=== PATIENT | male | born 1960 | race African-American/Black ===

== ENCOUNTER → 2016-11-05 | Outpatient (CLI) | payer OTHER ==
[2016-11-05 08:44] LABS: Basophils % (A) 0 %; CH 32.4; CHCM 33.2; Eosinophils % (A) 1 %; HCT 48.5 % (39.0-53.0); HDW 2.29; HGB 15.8 gm/dL (13.0-17.5); Luc # (Auto) 0.14; Luc % (Auto) 3; Lymphocytes # (A) 1.8 k/uL (1.0-4.8); Lymphocytes % (A) 41 %; MCH 31.8 pg (25.0-35.0); MCHC 32.5 g/dL (31.0-37.0); Mean Platelet Volume 6.9; Monocytes # (A) 0.4 k/uL (0-1.0); Monocytes % (A) 8 %; Neutrophils # (A) 2.1 k/uL (1.3-7.7); Neutrophils % (A) 47 %; RBC 4.95 m/uL (4.30-5.90); RDW 13.5 % (11.5-15.5); WBC 4.4 k/uL (3.8-10.6); WBC (Perox) 4.31
[2016-11-05 08:55] LABS: Anion Gap 11 mmol/L; Blood Urea Nitrogen 18 mg/dL (9-20); Calcium 9.9 mg/dL (8.4-10.2); Carbon Dioxide 26 mmol/L (22-30); Chloride 105 mmol/L (98-107); Glucose 94 mg/dL (74-99); Non-African American GFR(MDRD) >60 (>60 ml/min/1.73 sqM); Potassium 4.9 mmol/L (3.5-5.1); Sodium 142 mmol/L (137-145)
[2016-11-05 09:40] LABS: Erythrocyte Sedimentation Rate 7 mm/hr (0-15)
--- NOTE | 2016-11-05 10:28 | CT ---
EXAMINATION TYPE: CT forearm LT w con DATE OF EXAM: 11/05/2016 10:19 AM COMPARISON: NONE HISTORY: Left forearm abscess CT DLP: 398 mGycm Automated exposure control for dose reduction was used. CONTRAST: Performed with IV Contrast, patient injected with 100 ml mL of Omnipaque 300. FINDINGS: There is soft tissue edema along the volar aspect of the wrist. Skin thickening is noted with fluid a nd edema. No definable abscess cavity. No bone destruction. IMPRESSION: THERE IS EDEMA ALONG THE VOLAR ASPECT OF THE DISTAL FOREARM. NO DEFINABLE OR ENHANCING ABSCESS. CELLU LITIS AND POSSIBLE MYOSITIS IN THE DIFFERENTIAL COULD BE CORRELATED WITH MRI.
[2016-11-06 07:57] LABS: HIV-1/HIV-2 Ab Screen NONREAC (NON REAC)
== END | disposition home or self-care (01) ==
LOC: RADCTMAIN 07:58
PROVIDERS: ATTEND Internal Medicine Infectious Disease
DX: R60.0 Localized edema (principal)
CPT/HCPCS: 80048; 85652; 85025; 87389; 36415; 73201; Q9967

== ENCOUNTER → 2017-02-12 | Outpatient (CLI) | payer OTHER ==
[2017-02-12 10:25] LABS: Basophils % (A) 1 %; CH 32.3; CHCM 32.5; Eosinophils # (A) 0.1 k/uL (0-0.7); Eosinophils % (A) 2 %; HDW 2.35; HGB 16.7 gm/dL (13.0-17.5); Luc # (Auto) 0.18; Luc % (Auto) 4; Lymphocytes # (A) 1.6 k/uL (1.0-4.8); Lymphocytes % (A) 33 %; MCH 32.7 pg (25.0-35.0); MCHC 32.7 g/dL (31.0-37.0); MCV 99.9 fL (80.0-100.0); Mean Platelet Volume 7.1; Monocytes # (A) 0.4 k/uL (0-1.0); Monocytes % (A) 7 %; Neutrophils # (A) 2.6 k/uL (1.3-7.7); Neutrophils % (A) 54 %; RBC 5.11 m/uL (4.30-5.90); RDW 13.6 % (11.5-15.5); WBC 4.8 k/uL (3.8-10.6); WBC (Perox) 4.91
[2017-02-12 10:48] LABS: ALT 46 U/L (21-72); AST 38 U/L (17-59); Alkaline Phosphatase 74 U/L (38-126); Anion Gap 10 mmol/L; Blood Urea Nitrogen 24 mg/dL (9-20); Calcium 9.8 mg/dL (8.4-10.2); Carbon Dioxide 27 mmol/L (22-30); Chloride 103 mmol/L (98-107); Glucose 85 mg/dL (74-99); Non-African American GFR(MDRD) 59 (>60 ml/min/1.73 sqM); Potassium 4.9 mmol/L (3.5-5.1); Sodium 140 mmol/L (137-145); Total Bilirubin 0.7 mg/dL (0.2-1.3); Total Protein 7.3 g/dL (6.3-8.2)
[2017-02-14 11:17] LABS: HCV Qualitative Result DETECTED (Not detected)
== END | disposition home or self-care (01) ==
LOC: LABWHC1 09:50
PROVIDERS: ATTEND Internal Medicine Gastroenterology
DX: B18.2 Chronic viral hepatitis C (principal)
CPT/HCPCS: 36415; 80053; 82105; 85025; 87522; 87902

== ENCOUNTER 2017-05-04 13:36 | Emergency (ER) | payer OTHER ==
[2017-05-04] MEDS ORDERED: SODIUM CHLORIDE 0.9% 1,000 ML IV STA ×2 (13:39)
[2017-05-04 13:43] LABS: Glucose,Whole Blood 115 mg/dL (75-99)
--- NOTE | 2017-05-04 13:47 | ED ---
Syncope HPI - General Stated Complaint: Fall Time Seen by Provider: 05/04/17 13:36 Source: EMS, RN notes reviewed Mode of arrival: EMS Limitations: altered mental status - History of Present Illness Initial Comments: This is a 56-year-old male who sustained a syncopal episode prior to admission apparently he was doing cocaine and Xanax with a friend his his friend opened the door and the patient fell earlier yesterday door frame and onto the ground. He was helped up by his friend EMS was called. Patient complains of some neck pain as well as some lower lip pain he also apparently was unconscious for a brief period time per has 1-2 minutes. No nausea no vomiting no focal deficits reported. Patient did apparently just get discharged from [facility]. MD Complaint: loss of consciousness - Related Data Home Medications Medication Instructions Recorded Confirmed ALPRAZolam [Xanax] 0.25 mg PO DAILY PRN 10/04/15 10/04/15 DULoxetine HCL [Cymbalta] 60 mg PO DAILY 10/04/15 10/04/15 Gabapentin [Neurontin] 300 mg PO TID 10/04/15 10/04/15 Metoprolol Tartrate 25 mg PO BID 10/04/15 10/04/15 Naproxen 500 mg PO Q12HR 10/04/15 10/04/15 Pravastatin Sodium [Pravachol] 20 mg PO DAILY 10/04/15 10/04/15 Simvastatin [Zocor] 40 mg PO HS 10/04/15 10/04/15 oxyCODONE-APAP 7.5-325MG [Percocet 1 tab PO Q6HR PRN 10/04/15 10/04/15 7.5-325 mg] traMADol HCl [Ultram] 50 mg PO Q6H PRN 10/04/15 10/04/15 Allergies Allergy/AdvReac Type Severity Reaction Status Date / Time No Known Allergies Allergy Verified 05/04/17 13:43 Review of Systems ROS Statement: Those systems with pertinent positive or pertinent negative responses have been documented in the HPI. ROS Other: All systems not noted in ROS Statement are negative. Past Medical History Past Medical History: COPD, Diabetes Mellitus, Hyperlipidemia, Hypertension Additional Past Medical History / Comment(s): alcoholism-remission, arthritis, Hepatitis C History of Any Multi-Drug Resistant Organisms: None Reported Additional Past Surgical History / Comment(s): neck surgery from trauma Past Psychological History: Depression Smoking Status: Current every day smoker Past Alcohol Use History: None Reported Past Drug Use History: None Reported General Exam - General Exam Comments Initial Comments: This is a well-developed molars lethargic male he does have a cervical collar in place. He does respond to questioning. Patient does demonstrate Reanna Coma Scale 14 Limitations: altered mental status General appearance: alert, lethargic Head exam: Present: normocephalic, other (Abrasion seen over the left lateral eyebrow no active bleeding no formed by seen no step-off or crepitation) Eye exam: Present: normal appearance, PERRL, EOMI. Absent: scleral icterus, conjunctival injection, periorbital swelling ENT exam: Present: other (A superficial 1 cm laceration of the right lower lip no active bleeding. Dentition is intact with no evidence of any avulsion there is a decayed tooth #6) Neck exam: Present: normal inspection, tenderness. Absent: lymphadenopathy Respiratory exam: Present: normal lung sounds bilaterally. Absent: respiratory distress, wheezes, rales, rhonchi, stridor Cardiovascular Exam: Present: regular rate, normal rhythm, normal heart sounds. Absent: systolic murmur, diastolic murmur, rubs, gallop, clicks GI/Abdominal exam: Present: soft, normal bowel sounds. Absent: distended, tenderness, guarding, rebound, rigid Extremities exam: Present: normal inspection, full ROM, normal capillary refill. Absent: tenderness, pedal edema, joint swelling, calf tenderness Back exam: Present: normal inspection Neurological exam: Present: alert, oriented X3, CN II-XII intact Psychiatric exam: Present: normal affect, normal mood Skin exam: Present: warm, dry, intact, normal color. Absent: rash Course Vital Signs 05/04/17 05/04/17 13:39 13:45 Pulse Rate 94 Pulse Rate [ 100 Delivery Agent ] Respiratory 18 Rate Blood Pressure 75/50 O2 Sat by Pulse 90 L Oximetry Medical Decision Making - Medical Decision Making I did reevaluate patient several occasions he still remains lethargic. There is a question whether this is secondary to concussion versus drug intoxication or combination of both.. The patient does require observation. I did discuss the case with Dr. Oconnor at [facility] patient will be transferred for evaluation. - Lab Data Result diagrams: 05/04/17 13:50 05/04/17 13:50 Lab Results 05/04/17 05/04/17 05/04/17 Range/Units 13:41 13:50 13:50 WBC 6.4 (3.8-10.6) k/uL RBC 4.90 (4.30-5.90) m/uL Hgb 15.8 (13.0-17.5) gm/dL Hct 49.1 (39.0-53.0) % MCV 100.3 H (80.0-100.0) fL MCH 32.3 (25.0-35.0) pg MCHC 32.3 (31.0-37.0) g/dL RDW 14.0 (11.5-15.5) % Plt Count 236 (150-450) k/uL Neutrophils % 59 % Lymphocytes % 30 % Monocytes % 8 % Eosinophils % 1 % Basophils % 0 % Neutrophils # 3.8 (1.3-7.7) k/uL Lymphocytes # 1.9 (1.0-4.8) k/uL Monocytes # 0.5 (0-1.0) k/uL Eosinophils # 0.1 (0-0.7) k/uL Basophils # 0.0 (0-0.2) k/uL PT 11.2 (9.0-12.0) sec INR 1.1 (<1.2) APTT 23.3 (22.0-30.0) sec Sodium (137-145) mmol/L Potassium (3.5-5.1) mmol/L Chloride (98-107) mmol/L Carbon Dioxide (22-30) mmol/L Anion Gap mmol/L BUN (9-20) mg/dL Creatinine (0.66-1.25) mg/dL Est GFR (MDRD) Af Amer (>60 ml/min/1.73 sqM) Est GFR (MDRD) Non-Af (>60 ml/min/1.73 sqM) Glucose (74-99) mg/dL POC Glucose (mg/dL) 115 H (75-99) mg/dL POC Glu Pharmacy Technician Program Director ID Sharp, [place] Calcium (8.4-10.2) mg/dL Magnesium (1.6-2.3) mg/dL Total Bilirubin (0.2-1.3) mg/dL AST (17-59) U/L ALT (21-72) U/L Alkaline Phosphatase (38-126) U/L Total Creatine Kinase (55-170) U/L CK-MB (CK-2) (0.0-2.4) ng/mL CK-MB (CK-2) Rel Index Troponin I (0.000-0.034) ng/mL Total Protein (6.3-8.2) g/dL Albumin (3.5-5.0) g/dL Urine Color Urine Appearance (Clear) Urine pH (5.0-8.0) Ur Specific [place] (1.001-1.035) Urine Protein (Negative) Urine Glucose (UA) (Negative) Urine Ketones (Negative) Urine Blood (Negative) Urine Nitrite (Negative) Urine Bilirubin (Negative) Urine Urobilinogen (<2.0) mg/dL Ur Leukocyte Esterase (Negative) Salicylates mg/dL Urine Opiates Screen (NotDetected) Ur Oxycodone Screen (NotDetected) Urine Methadone Screen (NotDetected) Ur Propoxyphene Screen (NotDetected) Acetaminophen ug/mL Ur Barbiturates Screen (NotDetected) U Tricyclic Antidepress (NotDetected) Ur Phencyclidine Scrn (NotDetected) Ur Amphetamines Screen (NotDetected) U Methamphetamines Scrn (NotDetected) U Benzodiazepines Scrn (NotDetected) Urine Cocaine Screen (NotDetected) U Marijuana (THC) Screen (NotDetected) Serum Alcohol mg/dL 05/04/17 05/04/17 05/04/17 Range/Units 13:50 13:50 14:40 WBC (3.8-10.6) k/uL RBC (4.30-5.90) m/uL Hgb (13.0-17.5) gm/dL Hct (39.0-53.0) % MCV (80.0-100.0) fL MCH (25.0-35.0) pg MCHC (31.0-37.0) g/dL RDW (11.5-15.5) % Plt Count (150-450) k/uL Neutrophils % % Lymphocytes % % Monocytes % % Eosinophils % % Basophils % % Neutrophils # (1.3-7.7) k/uL Lymphocytes # (1.0-4.8) k/uL Monocytes # (0-1.0) k/uL Eosinophils # (0-0.7) k/uL Basophils # (0-0.2) k/uL PT (9.0-12.0) sec INR (<1.2) APTT (22.0-30.0) sec Sodium 143 (137-145) mmol/L Potassium 4.0 (3.5-5.1) mmol/L Chloride 106 (98-107) mmol/L Carbon Dioxide 27 (22-30) mmol/L Anion Gap 10 mmol/L BUN 16 (9-20) mg/dL Creatinine 1.47 H (0.66-1.25) mg/dL Est GFR (MDRD) Af Amer 60 (>60 ml/min/1.73 sqM) Est GFR (MDRD) Non-Af 49 (>60 ml/min/1.73 sqM) Glucose 109 H (74-99) mg/dL POC Glucose (mg/dL) (75-99) mg/dL POC Glu Pharmacy Technician Program Director ID Calcium 9.1 (8.4-10.2) mg/dL Magnesium 1.9 (1.6-2.3) mg/dL Total Bilirubin 0.9 (0.2-1.3) mg/dL AST 41 (17-59) U/L ALT 49 (21-72) U/L Alkaline Phosphatase 90 (38-126) U/L Total Creatine Kinase 244 H (55-170) U/L CK-MB (CK-2) 2.3 (0.0-2.4) ng/mL CK-MB (CK-2) Rel Index 0.9 Troponin I <0.012 (0.000-0.034) ng/mL Total Protein 6.9 (6.3-8.2) g/dL Albumin 4.0 (3.5-5.0) g/dL Urine Color Yellow Urine Appearance Clear (Clear) Urine pH 6.0 (5.0-8.0) Ur Specific [place] 1.008 (1.001-1.035) Urine Protein Negative (Negative) Urine Glucose (UA) Negative (Negative) Urine Ketones Negative (Negative) Urine Blood Negative (Negative) Urine Nitrite Negative (Negative) Urine Bilirubin Negative (Negative) Urine Urobilinogen 3.0 (<2.0) mg/dL Ur Leukocyte Esterase Negative (Negative) Salicylates <1.0 mg/dL Urine Opiates Screen (NotDetected) Ur Oxycodone Screen (NotDetected) Urine Methadone Screen (NotDetected) Ur Propoxyphene Screen (NotDetected) Acetaminophen <10.0 ug/mL Ur Barbiturates Screen (NotDetected) U Tricyclic Antidepress (NotDetected) Ur Phencyclidine Scrn (NotDetected) Ur Amphetamines Screen (NotDetected) U Methamphetamines Scrn (NotDetected) U Benzodiazepines Scrn (NotDetected) Urine Cocaine Screen (NotDetected) U Marijuana (THC) Screen (NotDetected) Serum Alcohol <10 mg/dL 05/04/17 Range/Units 14:40 WBC (3.8-10.6) k/uL RBC (4.30-5.90) m/uL Hgb (13.0-17.5) gm/dL Hct (39.0-53.0) % MCV (80.0-100.0) fL MCH (25.0-35.0) pg MCHC (31.0-37.0) g/dL RDW (11.5-15.5) % Plt Count (150-450) k/uL Neutrophils % % Lymphocytes % % Monocytes % % Eosinophils % % Basophils % % Neutrophils # (1.3-7.7) k/uL Lymphocytes # (1.0-4.8) k/uL Monocytes # (0-1.0) k/uL Eosinophils # (0-0.7) k/uL Basophils # (0-0.2) k/uL PT (9.0-12.0) sec INR (<1.2) APTT (22.0-30.0) sec Sodium (137-145) mmol/L Potassium (3.5-5.1) mmol/L Chloride (98-107) mmol/L Carbon Dioxide (22-30) mmol/L Anion Gap mmol/L BUN (9-20) mg/dL Creatinine (0.66-1.25) mg/dL Est GFR (MDRD) Af Amer (>60 ml/min/1.73 sqM) Est GFR (MDRD) Non-Af (>60 ml/min/1.73 sqM) Glucose (74-99) mg/dL POC Glucose (mg/dL) (75-99) mg/dL POC Glu Pharmacy Technician Program Director ID Calcium (8.4-10.2) mg/dL Magnesium (1.6-2.3) mg/dL Total Bilirubin (0.2-1.3) mg/dL AST (17-59) U/L ALT (21-72) U/L Alkaline Phosphatase (38-126) U/L Total Creatine Kinase (55-170) U/L CK-MB (CK-2) (0.0-2.4) ng/mL CK-MB (CK-2) Rel Index Troponin I (0.000-0.034) ng/mL Total Protein (6.3-8.2) g/dL Albumin (3.5-5.0) g/dL Urine Color Urine Appearance (Clear) Urine pH (5.0-8.0) Ur Specific [place] (1.001-1.035) Urine Protein (Negative) Urine Glucose (UA) (Negative) Urine Ketones (Negative) Urine Blood (Negative) Urine Nitrite (Negative) Urine Bilirubin (Negative) Urine Urobilinogen (<2.0) mg/dL Ur Leukocyte Esterase (Negative) Salicylates mg/dL Urine Opiates Screen Not Detected (NotDetected) Ur Oxycodone Screen Not Detected (NotDetected) Urine Methadone Screen Not Detected (NotDetected) Ur Propoxyphene Screen Not Detected (NotDetected) Acetaminophen ug/mL Ur Barbiturates Screen Not Detected (NotDetected) U Tricyclic Antidepress Not Detected (NotDetected) Ur Phencyclidine Scrn Not Detected (NotDetected) Ur Amphetamines Screen Not Detected (NotDetected) U Methamphetamines Scrn Not Detected (NotDetected) U Benzodiazepines Scrn Detected H (NotDetected) Urine Cocaine Screen Detected H (NotDetected) U Marijuana (THC) Screen Not Detected (NotDetected) Serum Alcohol mg/dL - EKG Data -: EKG Interpreted by Nm EKG shows normal: sinus rhythm, axis, intervals, QRS complexes, ST-T waves ( Normal sinus rhythm rate 96 OK 132 QRS duration 80 daily since QTC of 334/421 or T-wave changes.) Rate: normal - Radiology Data Radiology results: report reviewed (Imaging shows no acute findings.), image reviewed Disposition Clinical Impression: Syncope, Concussion, Facial abrasion, Drug abuse, cocaine type Disposition: OTHER INSTITUTION NOT DEFINED Condition: Stable Referrals: None,Stated [Primary Care Provider] - 1-2 days - Out of Hospital Transfer - Req. Specs Out of Hospital Transfer - Requested Specifics: Other Emergency Center
[2017-05-04 14:06] LABS: Basophils % (A) 0 %; CHCM 33.1; Eosinophils # (A) 0.1 k/uL (0-0.7); Eosinophils % (A) 1 %; HCT 49.1 % (39.0-53.0); HDW 2.44; HGB 15.8 gm/dL (13.0-17.5); Luc # (Auto) 0.15; Luc % (Auto) 2; Lymphocytes # (A) 1.9 k/uL (1.0-4.8); Lymphocytes % (A) 30 %; MCH 32.3 pg (25.0-35.0); MCHC 32.3 g/dL (31.0-37.0); MCV 100.3 fL (80.0-100.0); Mean Platelet Volume 7.8; Monocytes # (A) 0.5 k/uL (0-1.0); Monocytes % (A) 8 %; Neutrophils # (A) 3.8 k/uL (1.3-7.7); Neutrophils % (A) 59 %; WBC 6.4 k/uL (3.8-10.6)
[2017-05-04 14:12] LABS: ALT 49 U/L (21-72); AST 41 U/L (17-59); Acetaminophen <10.0 ug/mL; Alcohol <10 mg/dL; Alkaline Phosphatase 90 U/L (38-126); Anion Gap 10 mmol/L; Blood Urea Nitrogen 16 mg/dL (9-20); Calcium 9.1 mg/dL (8.4-10.2); Carbon Dioxide 27 mmol/L (22-30); Chloride 106 mmol/L (98-107); Glucose 109 mg/dL (74-99); Magnesium 1.9 mg/dL (1.6-2.3); Non-African American GFR(MDRD) 49 (>60 ml/min/1.73 sqM); Salicylate <1.0 mg/dL; Sodium 143 mmol/L (137-145); Total Bilirubin 0.9 mg/dL (0.2-1.3); Total Protein 6.9 g/dL (6.3-8.2)
[2017-05-04 14:18] LABS: INR 1.1 (<1.2); Partial Thromboplastin Time 23.3 sec (22.0-30.0); Prothrombin Time 11.2 sec (9.0-12.0)
--- NOTE | 2017-05-04 14:21 | XR ---
EXAMINATION TYPE: XR chest 1V portable DATE OF EXAM: 05/04/2017 COMPARISON: August 26, 2015 HISTORY: Syncopal episode with fall. TECHNIQUE: Single frontal view of the chest is obtained. FINDINGS: No pneumothorax or pleural effusion is identified. There is an opacity at the left lung ba se which could be related atelectasis or pneumonia. Cardiac silhouette is within normal limits. IMPRESSION: Atelectasis versus pneumonia at the left lung base.
[2017-05-04 14:22] LABS: Creatine Kinase 244 U/L (55-170)
--- NOTE | 2017-05-04 14:27 | CT ---
EXAMINATION TYPE: CT brain thiernoine deepali con DATE OF EXAM: 05/04/2017 COMPARISON: August 26, 2015 HISTORY: Syncopal episode. CT DLP: 1446.20 mGycm Automated exposure control for dose reduction was used. TECHNIQUE: CT scan of the head and cervical spine are performed without contrast. FINDINGS: There is no acute intracranial hemorrhage, mass effect, or midline shift identified. The ventricles and sulci are within normal limits in size. The globes are intact and the visualized sin uses are clear. Cervical spine is visualized in its entirety from C1 through upper thoracic levels and demonstrates s atisfactory alignment without evidence of acute fracture or dislocation. Prevertebral soft tissue ap pears within normal limits. The C1-C2 articulation is unremarkable. Emphysema is noted in the apex of the right upper lobe. There are R posterior calcified disc bulges noted at the level of C4-5 and C 5-6 which abut the ventral aspect of the cord. IMPRESSION: 1. There is no acute fracture or dislocation evident in the cervical spine. Degenerative changes are noted as described above. 2. No acute intracranial hemorrhage, mass effect, or midline shift is seen.
[2017-05-04 14:35] LABS: Creatine Kinase MB 2.3 ng/mL (0.0-2.4); Troponin I <0.012 ng/mL (0.000-0.034)
[2017-05-04 15:00] LABS: Appearance,Urine Clear (Clear); Bilirubin,Urine Negative (Negative); Glucose,Urine (UA) Negative (Negative); Ketones,Urine Negative (Negative); Leukocyte Esterase,Urine Negative (Negative); Nitrite,Urine Negative (Negative); Protein,Urine Negative (Negative); Specific Gravity,Urine 1.008 (1.001-1.035); UA Billing (MACRO vs. MICRO) CHEM
[2017-05-04 16:36] VITALS: BP 118/80; PULSE 100; RESP 16; TEMP 98
== END 2017-05-04 16:30 | disposition short-term general hospital (02) ==
LOC: EC 13:36
DX: S06.0X1A Concussion with loss of consciousness of 30 minutes or less, initial encounter (principal); S00.212A Abrasion of left eyelid and periocular area, initial encounter; S00.511A Abrasion of lip, initial encounter; R55 Syncope and collapse; F14.10 Cocaine abuse, uncomplicated; R40.2412 Glasgow coma scale score 13-15, at arrival to emergency department; I10 Essential (primary) hypertension; E78.5 Hyperlipidemia, unspecified; M19.90 Unspecified osteoarthritis, unspecified site; F32.9 Major depressive disorder, single episode, unspecified; F17.200 Nicotine dependence, unspecified, uncomplicated; Z79.1 Long term (current) use of non-steroidal anti-inflammatories (NSAID); Z79.899 Other long term (current) drug therapy; W01.198A Fall on same level from slipping, tripping and stumbling with subsequent striking against other object, initial encounter; Y92.009 Unspecified place in unspecified non-institutional (private) residence as the place of occurrence of the external cause
CPT/HCPCS: 36415; 70450; 71010; 72125; 80053; 80306; 80320; 81003; 82550; 82553; 83520; 83735; 84484; 85025; 85610; 85730; 93005; 96360; 96361; 99285

== ENCOUNTER 2017-07-11 08:44 | Emergency (ER) | payer OTHER ==
[2017-07-11 08:48] VITALS: BP 117/80; PULSE 63; RESP 16; TEMP 97
--- NOTE | 2017-07-11 09:05 | ED ---
General Adult HPI - General Chief complaint: Skin/Abscess/Foreign Body Stated complaint: abcess Time Seen by Provider: 07/11/17 08:51 Source: patient, RN notes reviewed Mode of arrival: ambulatory Limitations: no limitations - History of Present Illness Initial comments: 49-year-old male presents to the emergency Department chief complaint of abscess to the left wrist. Patient states he gets this on and off for 2 years ever since he had surgery to the left wrist. Patient states that he does not have a history of MRSA. Patient denies any nausea or vomiting with this any fever chills. Patient states that he has not been able to drain it at home by himself. Patient states he normally has a drain placed on antibiotics and he gets better and then it will come back. Patient denies any other symptoms at this time. Patient states his pain is moderate worse to touch. Patient was concerned due to his continued abscess in the fact that it would not drain on its own so he thought that he should be seen.Patient denies any recent fever, chills, shortness of breath, chest pain, back pain, abdominal pain, nausea vomiting, numbness or tingling, dysuria or hematuria, constipation or diarrhea, headaches or visual changes, or any other current symptoms. - Related Data Home Medications Medication Instructions Recorded Confirmed ALPRAZolam [Xanax] 0.25 mg PO DAILY PRN 10/04/15 10/04/15 DULoxetine HCL [Cymbalta] 60 mg PO DAILY 10/04/15 10/04/15 Gabapentin [Neurontin] 300 mg PO TID 10/04/15 10/04/15 Metoprolol Tartrate 25 mg PO BID 10/04/15 10/04/15 Naproxen 500 mg PO Q12HR 10/04/15 10/04/15 Pravastatin Sodium [Pravachol] 20 mg PO DAILY 10/04/15 10/04/15 Simvastatin [Zocor] 40 mg PO HS 10/04/15 10/04/15 oxyCODONE-APAP 7.5-325MG [Percocet 1 tab PO Q6HR PRN 10/04/15 10/04/15 7.5-325 mg] traMADol HCl [Ultram] 50 mg PO Q6H PRN 10/04/15 10/04/15 Previous Rx's Medication Instructions Recorded Sulfamethox-Tmp 800-160Mg [Bactrim 2 each PO Q12HR #56 tab 07/11/17 DS 800-160 mg] Allergies Allergy/AdvReac Type Severity Reaction Status Date / Time No Known Allergies Allergy Verified 07/11/17 08:48 Review of Systems ROS Statement: Those systems with pertinent positive or pertinent negative responses have been documented in the HPI. ROS Other: All systems not noted in ROS Statement are negative. Past Medical History Past Medical History: COPD, Diabetes Mellitus, Hyperlipidemia, Hypertension Additional Past Medical History / Comment(s): alcoholism-remission, arthritis, Hepatitis C History of Any Multi-Drug Resistant Organisms: None Reported Additional Past Surgical History / Comment(s): neck surgery from trauma Past Psychological History: Depression Smoking Status: Current every day smoker Past Alcohol Use History: None Reported Past Drug Use History: None Reported General Exam - General Exam Comments Initial Comments: General: The patient is awake and alert, in no distress, and does not appear acutely ill. Neck: The neck is supple, there is no tenderness or JVD. Cardiovascular: There is a regular rate and rhythm. No murmur, rub or gallop is appreciated. Respiratory: Lungs are clear to auscultation, respirations are non-labored, breath sounds are equal. No wheezes, stridor, rales, or rhonchi. Musculoskeletal: Patient tach 2+ pulses. Left upper alvarez. Fund motion left elbow and left wrist. Patient does appear to have an abscess in the center of the left wrist. No drainage at this time. Full range of motion. 5 out of 5 muscle strength testing throughout. Neurological: CN II-XII intact, There are no obvious motor or sensory deficits. Coordination appears grossly intact. Speech is normal. Skin: Skin is warm and dry and no rashes or lesions are noted. Psychiatric: Normal mood and affect. Limitations: no limitations Course Vital Signs 07/11/17 08:44 Temperature 97 F L Pulse Rate 63 Respiratory 16 Rate Blood Pressure 117/80 O2 Sat by Pulse 100 Oximetry Procedures - Procedures Initial comment: Procedure: Incision and drainage The skin overlying the abscess was prepped. An 18-gauge needle was then used to incise the abscess. Some purulent material was then extracted from the lesion. Gauze dressing placed on top, The patient tolerated the procedure well. Medical Decision Making - Medical Decision Making 57-year-old male presents emergency Department chief complaint of left wrist abscess. At this time patient underwent I&D. We discussed care follow-up return parameters. He is. Patient is in agreement. He'll be discharged. Disposition Clinical Impression: Abscess of wrist Narrative: Left Disposition: HOME SELF-CARE Condition: Stable Instructions: Abscess (ED) Additional Instructions: Please use medication as discussed. Please follow up with family doctor if symptoms have not improved over the next two days. Please return to the emergency room if your symptoms increase or worsen or for any other concerns. Prescriptions: Sulfamethox-Tmp 800-160Mg [Bactrim DS 800-160 mg] 2 each PO Q12HR #56 tab Referrals: Kaden Louis DO [STAFF PHYSICIAN] - 1-2 days Time of Disposition: 09:05
== END 2017-07-11 09:39 | disposition home or self-care (01) ==
LOC: EC 08:44
DX: L02.414 Cutaneous abscess of left upper limb (principal); E78.5 Hyperlipidemia, unspecified; I10 Essential (primary) hypertension; F32.9 Major depressive disorder, single episode, unspecified; M19.90 Unspecified osteoarthritis, unspecified site; F17.200 Nicotine dependence, unspecified, uncomplicated; Z79.1 Long term (current) use of non-steroidal anti-inflammatories (NSAID); Z79.899 Other long term (current) drug therapy
CPT/HCPCS: 10060; 99282

== ENCOUNTER → 2017-10-28 | Outpatient (CLI) | payer OTHER ==
--- NOTE | 2017-10-28 12:43 | MR ---
EXAMINATION TYPE: MR lumbar spine wo con DATE OF EXAM: 10/28/2017 11:45 AM COMPARISON: NONE HISTORY: Lumbago with sciatica, left side Multiplanar, MultiSpin echo imaging of the lumbar spine was performed. L1-L2: Normal disc appearance without desiccation. No herniation, protrusion or disc bulging. No ca nal stenosis is present. Foramina are patent bilaterally. L2-L3: Moderate disc desiccation noted. Moderate circumferential disc bulge greatest posteriorly with effacement of the ventral thecal sac. No evidence for central stenosis or lateral recess stenosis. M ild left foraminal encroachment identified. L3-L4: Moderate disc desiccation noted. Moderate circumferential disc bulge greatest posteriorly with effacement of the ventral thecal sac. No evidence for central stenosis or lateral recess stenosis. M ild left foraminal encroachment identified. L4-L5: Moderate disc desiccation with circumferential disc bulge greatest posteriorly. Posterior late rally into the right though there is a disc herniation resulting in right lateral recess stenosis and right foraminal encroachment. Borderline central stenosis. L5-S1: Moderate disc desiccation. Circumferential disc bulge with greater component posterocentral wh ich may reflect a small disc herniation. There may be intermittent right lateral recess stenosis. Rig ht foraminal encroachment identified into a lesser extent left sided foraminal encroachment. Lumbar segments are intact. No paraspinal masses are identified. Conus medullaris has a normal appe arance. Degenerative endplate marrow changes and ventral spondylosis. IMPRESSION: 1. Multilevel degenerative disc disease and disc bulging. 2. Far lateral into the right disc herniation at L4-5 resulting in right lateral recess stenosis and foraminal encroachment. See above.
== END | disposition home or self-care (01) ==
LOC: RADMRIMAIN 10:48
PROVIDERS: ATTEND Nurse Practitioner Family
DX: M48.061 Spinal stenosis, lumbar region without neurogenic claudication (principal); M51.26 Other intervertebral disc displacement, lumbar region; M51.16 Intervertebral disc disorders with radiculopathy, lumbar region; G57.93 Unspecified mononeuropathy of bilateral lower limbs
CPT/HCPCS: 72148

== ENCOUNTER → 2017-10-29 | Outpatient (CLI) | payer OTHER ==
[2017-10-29 08:43] LABS: Basophils % (A) 1 %; Eosinophils # (A) 0.1 k/uL (0-0.7); Eosinophils % (A) 1 %; HCT 47.8 % (39.0-53.0); HGB 15.3 gm/dL (13.0-17.5); Lymphocytes # (A) 1.7 k/uL (1.0-4.8); Lymphocytes % (A) 34 %; MCH 31.5 pg (25.0-35.0); MCHC 32.1 g/dL (31.0-37.0); MCV 98.2 fL (80.0-100.0); Monocytes # (A) 0.5 k/uL (0-1.0); Monocytes % (A) 9 %; Neutrophils # (A) 2.7 k/uL (1.3-7.7); Neutrophils % (A) 52 %; Platelet Count 234 k/uL (150-450); RBC 4.87 m/uL (4.30-5.90); RDW 13.3 % (11.5-15.5); WBC 5.2 k/uL (3.8-10.6)
[2017-10-29 08:59] LABS: ALT 47 U/L (21-72); AST 38 U/L (17-59); Albumin 4.1 g/dL (3.5-5.0); Alkaline Phosphatase 94 U/L (38-126); Anion Gap 10 mmol/L; Bilirubin, Delta 0.3 mg/dL (0.0-0.2); Blood Urea Nitrogen 13 mg/dL (9-20); Calcium 9.9 mg/dL (8.4-10.2); Carbon Dioxide 27 mmol/L (22-30); Chloride 105 mmol/L (98-107); Glucose 122 mg/dL (74-99); Potassium 4.4 mmol/L (3.5-5.1); Sodium 142 mmol/L (137-145); Total Bilirubin 0.3 mg/dL (0.2-1.3); Total Protein 7.1 g/dL (6.3-8.2)
[2017-10-31 09:57] LABS: HCV Quant Log 6.25 (<1.08)
== END | disposition home or self-care (01) ==
LOC: LABWHC1 08:09
PROVIDERS: ATTEND Internal Medicine Gastroenterology
DX: B18.2 Chronic viral hepatitis C (principal)
CPT/HCPCS: 36415; 80053; 82105; 82248; 85025; 87522

== ENCOUNTER → 2017-12-18 | Outpatient (CLI) | payer OTHER ==
[2017-12-16 12:01] VITALS: BMI 24.7
[2017-12-18 11:18] VITALS: BP 127/79; PULSE 79; RESP 18; TEMP 98
--- NOTE | 2018-01-04 20:57 | P.PN ---
Progress Note - Text Progress Note Date: 12/18/17 Patient seen in exam room briefly and chart reviewed. UDS positive for cocaine (with GCMS confirmation) and patient was discharged from our clinic.
== END | disposition home or self-care (01) ==
LOC: PNWHC3 10:16
PROVIDERS: ATTEND Anesthesiology
DX: M51.36 Other intervertebral disc degeneration, lumbar region (principal); M54.5 Low back pain; F14.90 Cocaine use, unspecified, uncomplicated
CPT/HCPCS: 99201

== ENCOUNTER 2018-02-19 08:54 | Observation (INO) | payer OTHER ==
[2018-02-19] MEDS ORDERED: KETOROLAC 30 MG/ML 1 ML VIAL IVP STA (09:17)
[2018-02-19] MEDS ORDERED: ASPIRIN 325 MG TAB PO STA (09:17)
--- NOTE | 2018-02-19 09:20 | ED ---
General Adult HPI - General Chief complaint: Chest Pain Stated complaint: Chest Pain Time Seen by Provider: 02/19/18 09:02 Source: patient, RN notes reviewed, old records reviewed Mode of arrival: wheelchair Limitations: no limitations - History of Present Illness Initial comments: 57-year-old male presents for evaluation of left arm pain which is been present for the past 2 days. Patient had developed some upper left chest pain associated with his left arm pain and was instructed by his therapist to present to the emergency department for evaluation. There was concern that this arm pain could be related to his heart. Pain is been constant dull ache in the left arm starting in the forearm, upper arm, and axilla. 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 He has had a incisional infection on and off for the past 2 years. He states that he did have a small blister with some purulent material about a week ago. However this has not progressed. No redness. No swelling in the arm. Denies central chest pain. Denies dyspnea. Denies vomiting or diarrhea. Denies abdominal pain. Pain is worse with movement of the left upper extremity. No specific injury or overuse. Patient is a current smoker and does admit to snorting Ritalin and possibly cocaine. - Related Data Home Medications Medication Instructions Recorded Confirmed DULoxetine HCL [Cymbalta] 60 mg PO DAILY 10/04/15 02/19/18 Simvastatin [Zocor] 40 mg PO DAILY 10/04/15 02/19/18 Gabapentin [Neurontin] 800 mg PO TID 07/11/17 02/19/18 Lisinopril [Zestril] 10 mg PO DAILY 07/11/17 02/19/18 Metoprolol Succinate (ER) [Toprol 25 mg PO DAILY 07/11/17 02/19/18 Xl] Albuterol Inhaler [Ventolin Hfa 1 - 2 puff INHALATION RT-Q6H PRN 12/16/17 Inhaler] Omeprazole 20 mg PO DAILY 12/16/17 02/19/18 Tamsulosin [Flomax] 0.4 mg PO DAILY 12/16/17 02/19/18 metFORMIN HCL [Glucophage] 500 mg PO DAILY 12/16/17 02/19/18 Allergies Allergy/AdvReac Type Severity Reaction Status Date / Time No Known Allergies Allergy Verified 02/19/18 09:18 Review of Systems ROS Statement: Those systems with pertinent positive or pertinent negative responses have been documented in the HPI. ROS Other: All systems not noted in ROS Statement are negative. Past Medical History Past Medical History: COPD, Diabetes Mellitus, Hyperlipidemia, Hypertension, Liver Disease, Osteoarthritis (OA), Sleep Apnea/CPAP/BIPAP Additional Past Medical History / Comment(s): Hepatitis C, supposed to use CPAP , right hip pain,lower back pain & right testicular pain History of Any Multi-Drug Resistant Organisms: None Reported Past Surgical History: Orthopedic Surgery Additional Past Surgical History / Comment(s): neck surgery from trauma, left arm surg. to repair circulation to hand Past Anesthesia/Blood Transfusion Reactions: No Reported Reaction Past Psychological History: Depression Smoking Status: Current every day smoker Past Alcohol Use History: Abuse Past Drug Use History: Cocaine - Past Family History Mother Family Medical History: No Reported History General Exam Limitations: no limitations General appearance: alert, in no apparent distress Head exam: Present: atraumatic, normocephalic Eye exam: Present: normal appearance, PERRL ENT exam: Present: normal exam Neck exam: Present: normal inspection. Absent: tenderness, meningismus Respiratory exam: Present: normal lung sounds bilaterally. Absent: respiratory distress Cardiovascular Exam: Present: regular rate, normal rhythm GI/Abdominal exam: Present: soft. Absent: distended, tenderness Extremities exam: Present: normal capillary refill, other (Left upper extremity , there is a well-healed fasciotomy scars on the forearm. Radial pulses 2+. 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 Compartments are soft throughout. There is small area of erythema at the distal end of the volar fasciotomy scar. No purulence. No induration. No fluctuance. Worsening pain with range of motion primarily at the shoulder and pectoral muscles.). Absent: pedal edema Neurological exam: Present: alert, oriented X3. Absent: motor sensory deficit Psychiatric exam: Present: normal affect, normal mood Skin exam: Present: warm, dry, intact. Absent: cyanosis, diaphoretic Course Vital Signs 02/19/18 08:59 Temperature 98.1 F Pulse Rate 83 Respiratory 18 Rate Blood Pressure 137/84 O2 Sat by Pulse 98 Oximetry EKG Findings - EKG Comments: EKG Findings:: EKG normal sinus rhythm, rate of 75, MN interval 1:30, QRS duration 86, QTC 386, no ST segment elevation or depression, T waves are upright Medical Decision Making - Medical Decision Making 57-year-old male presenting with left arm pain and left upper chest pain. Patient does admit to using cocaine. Pain is been present for the past 2 days. EKG is negative for ischemic changes. Laboratory studies do reveal an elevated troponin at 0.043. This is likely related to vasospasm secondary to cocaine. Hemoglobin stable, normal white blood cell count, normal electrolytes with mild hypomagnesemia which is replaced. Patient will be placed in observation for serial troponins to ensure that these are not up trending. - Lab Data Result diagrams: 02/19/18 09:10 02/19/18 09:10 Lab Results 02/19/18 02/19/18 02/19/18 Range/Units 09:10 09:10 09:10 WBC 4.6 (3.8-10.6) k/uL RBC 4.77 (4.30-5.90) m/uL Hgb 15.0 (13.0-17.5) gm/dL Hct 45.6 (39.0-53.0) % MCV 95.5 (80.0-100.0) fL MCH 31.4 (25.0-35.0) pg MCHC 32.9 (31.0-37.0) g/dL RDW 14.2 (11.5-15.5) % Plt Count 200 (150-450) k/uL Neutrophils % 60 % Lymphocytes % 30 % Monocytes % 6 % Eosinophils % 1 % Basophils % 0 % Neutrophils # 2.8 (1.3-7.7) k/uL Lymphocytes # 1.4 (1.0-4.8) k/uL Monocytes # 0.3 (0-1.0) k/uL Eosinophils # 0.1 (0-0.7) k/uL Basophils # 0.0 (0-0.2) k/uL PT (9.0-12.0) sec INR (<1.2) APTT (22.0-30.0) sec Sodium 138 (137-145) mmol/L Potassium 4.6 (3.5-5.1) mmol/L Chloride 105 (98-107) mmol/L Carbon Dioxide 20 L (22-30) mmol/L Anion Gap 13 mmol/L BUN 15 (9-20) mg/dL Creatinine 0.90 (0.66-1.25) mg/dL Est GFR (CKD-EPI)AfAm >90 (>60 ml/min/1.73 sqM) Est GFR (CKD-EPI)NonAf >90 (>60 ml/min/1.73 sqM) Glucose 145 H (74-99) mg/dL Calcium 9.3 (8.4-10.2) mg/dL Magnesium 1.5 L (1.6-2.3) mg/dL Total Bilirubin 0.3 (0.2-1.3) mg/dL AST 48 (17-59) U/L ALT 59 (21-72) U/L Alkaline Phosphatase 79 (38-126) U/L Total Creatine Kinase 103 (55-170) U/L CK-MB (CK-2) 1.4 (0.0-2.4) ng/mL CK-MB (CK-2) Rel Index 1.4 Troponin I 0.043 H* (0.000-0.034) ng/mL NT-Pro-B Natriuret Pep pg/mL Total Protein 6.8 (6.3-8.2) g/dL Albumin 4.1 (3.5-5.0) g/dL 02/19/18 02/19/18 Range/Units 09:10 09:10 WBC (3.8-10.6) k/uL RBC (4.30-5.90) m/uL Hgb (13.0-17.5) gm/dL Hct (39.0-53.0) % MCV (80.0-100.0) fL MCH (25.0-35.0) pg MCHC (31.0-37.0) g/dL RDW (11.5-15.5) % Plt Count (150-450) k/uL Neutrophils % % Lymphocytes % % Monocytes % % Eosinophils % % Basophils % % Neutrophils # (1.3-7.7) k/uL Lymphocytes # (1.0-4.8) k/uL Monocytes # (0-1.0) k/uL Eosinophils # (0-0.7) k/uL Basophils # (0-0.2) k/uL PT 10.4 (9.0-12.0) sec INR 1.1 (<1.2) APTT 24.8 (22.0-30.0) sec Sodium (137-145) mmol/L Potassium (3.5-5.1) mmol/L Chloride (98-107) mmol/L Carbon Dioxide (22-30) mmol/L Anion Gap mmol/L BUN (9-20) mg/dL Creatinine (0.66-1.25) mg/dL Est GFR (CKD-EPI)AfAm (>60 ml/min/1.73 sqM) Est GFR (CKD-EPI)NonAf (>60 ml/min/1.73 sqM) Glucose (74-99) mg/dL Calcium (8.4-10.2) mg/dL Magnesium (1.6-2.3) mg/dL Total Bilirubin (0.2-1.3) mg/dL AST (17-59) U/L ALT (21-72) U/L Alkaline Phosphatase (38-126) U/L Total Creatine Kinase (55-170) U/L CK-MB (CK-2) (0.0-2.4) ng/mL CK-MB (CK-2) Rel Index Troponin I (0.000-0.034) ng/mL NT-Pro-B Natriuret Pep 15 pg/mL Total Protein (6.3-8.2) g/dL Albumin (3.5-5.0) g/dL Disposition Clinical Impression: Chest pain, Cocaine abuse Disposition: ADMITTED IP TO THIS [facility] Condition: Stable Is patient prescribed a controlled substance at d/c from ED?: No Referrals: Lakeisha Zacarias MD [Primary Care Provider] - 1-2 days Decision to Admit Reason: Admit from EC Decision Date: 02/19/18 Decision Time: 10:42
[2018-02-19 09:40] LABS: Basophils % (A) 0 %; Eosinophils # (A) 0.1 k/uL (0-0.7); Eosinophils % (A) 1 %; HCT 45.6 % (39.0-53.0); Lymphocytes # (A) 1.4 k/uL (1.0-4.8); Lymphocytes % (A) 30 %; MCH 31.4 pg (25.0-35.0); MCHC 32.9 g/dL (31.0-37.0); MCV 95.5 fL (80.0-100.0); Mean Platelet Volume 7.6; Monocytes # (A) 0.3 k/uL (0-1.0); Monocytes % (A) 6 %; Neutrophils # (A) 2.8 k/uL (1.3-7.7); Neutrophils % (A) 60 %; Platelet Count 200 k/uL (150-450); RBC 4.77 m/uL (4.30-5.90); RDW 14.2 % (11.5-15.5); WBC 4.6 k/uL (3.8-10.6)
[2018-02-19 09:48] LABS: ALT 59 U/L (21-72); AST 48 U/L (17-59); Albumin 4.1 g/dL (3.5-5.0); Alkaline Phosphatase 79 U/L (38-126); Anion Gap 13 mmol/L; Blood Urea Nitrogen 15 mg/dL (9-20); Calcium 9.3 mg/dL (8.4-10.2); Carbon Dioxide 20 mmol/L (22-30); Chloride 105 mmol/L (98-107); Glucose 145 mg/dL (74-99); INR 1.1 (<1.2); Magnesium 1.5 mg/dL (1.6-2.3); Potassium 4.6 mmol/L (3.5-5.1); Sodium 138 mmol/L (137-145); Total Bilirubin 0.3 mg/dL (0.2-1.3); Total Protein 6.8 g/dL (6.3-8.2)
[2018-02-19 09:49] LABS: Partial Thromboplastin Time 24.8 sec (22.0-30.0); Prothrombin Time 10.4 sec (9.0-12.0)
--- NOTE | 2018-02-19 09:50 | XR ---
EXAMINATION TYPE: XR chest 2V DATE OF EXAM: 02/19/2018 COMPARISON: Prior chest x-ray 05/04/2017 HISTORY: Chest pain TECHNIQUE: Frontal and lateral views of the chest are obtained. FINDINGS: There is no focal air space opacity, pleural effusion, or pneumothorax seen. The cardiac silhouette size is stable. Prominent lung volumes suggest underlying COPD. There are overlying cardia c leads. The osseous structures are intact. Patient is rotated. IMPRESSION: No acute cardiopulmonary process.
[2018-02-19 10:17] LABS: Creatine Kinase MB 1.4 ng/mL (0.0-2.4)
[2018-02-19 10:27] LABS: Troponin I 0.043 ng/mL (0.000-0.034)
[2018-02-19] MEDS ORDERED: MAGNESIUM SULFATE-D5W PMX 1 GM in DEXTROSE/WATER 1 100ML.BAG IVPB ONE (10:41)
[2018-02-19] MEDS ORDERED: IBUPROFEN 400 MG TAB PO PRN (10:42)
[2018-02-19] MEDS ORDERED: ONDANSETRON 4 MG/2 ML VIAL IVP PRN (10:42)
[2018-02-19] MEDS ORDERED: NALOXONE 0.4 MG/ML 1 ML VIAL IV PRN (10:42)
[2018-02-19] MEDS ORDERED: ACETAMINOPHEN TAB 325 MG TAB PO PRN (10:42)
[2018-02-19] MEDS ORDERED: NITROGLYCERIN SL TABS 0.4 MG TAB SUBLINGUAL PRN (10:44)
[2018-02-19 11:25] LABS: Amphetamine Screen,Urine Not Detected (NotDetected); Barbiturate Screen,Urine Not Detected (NotDetected); Benzodiazepines Screen,Urine Not Detected (NotDetected); Cocaine Screen,Urine Detected (NotDetected); Methadone Screen, Urine Not Detected (NotDetected); Opiate Screen,Urine Not Detected (NotDetected); Oxycodone Screen, Urine Not Detected (NotDetected); Phencyclidine Screen,Urine Not Detected (NotDetected); Tricyclic Antidepressant,Urine Not Detected (NotDetected); Urn Cannabinoid Scrn Not Detected (NotDetected)
[2018-02-19] MEDS ORDERED: ALBUTEROL NEBULIZED 2.5 MG/3 ML INHALATION PRN (15:20)
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
[2018-02-19 15:50] LABS: Creatine Kinase MB 1.3 ng/mL (0.0-2.4)
[2018-02-19 15:52] LABS: Troponin I 0.04 ng/mL (0.000-0.034)
[2018-02-19] MEDS: MAGNESIUM SULFATE-D5W PMX 1 GM in DEXTROSE/WATER 1 100ML.BAG IVPB SCH ×2 (16:03→16:50)
[2018-02-19] MEDS: GABAPENTIN 400 MG CAP PO SCH ×2 (16:11→20:08)
[2018-02-19 16:38] LABS: Glucose,Whole Blood 109 mg/dL (75-99)
[2018-02-19 20:53] LABS: Glucose,Whole Blood 206 mg/dL (75-99)
[2018-02-19 21:49] LABS: Creatine Kinase MB 1.1 ng/mL (0.0-2.4)
[2018-02-19 21:50] LABS: Troponin I 0.039 ng/mL (0.000-0.034)
[2018-02-20 05:54] LABS: Glucose,Whole Blood 141 mg/dL (75-99)
[2018-02-20] MEDS ORDERED: PANTOPRAZOLE 40 MG TABLET PO SCH (07:30)
[2018-02-20] MEDS ORDERED: metFORMIN 500 MG TAB PO SCH (07:30)
[2018-02-20] MEDS: GABAPENTIN 400 MG CAP PO SCH (08:37)
[2018-02-20] MEDS ORDERED: METOPROLOL SUCCINATE (ER) 25 MG TAB.ER.24H PO SCH (09:00)
[2018-02-20] MEDS ORDERED: LISINOPRIL 10 MG TAB PO SCH (09:00)
[2018-02-20] MEDS ORDERED: ATORVASTATIN 20 MG TAB PO SCH (09:00)
[2018-02-20] MEDS ORDERED: DULoxetine HCL 60 MG CAPSULE.DR PO SCH (09:00)
[2018-02-20] MEDS ORDERED: TAMSULOSIN 0.4 MG CAP.ER.24H PO SCH (09:00)
[2018-02-20 09:40] VITALS: BP 121/71; PULSE 63; RESP 20; TEMP 97.6
--- NOTE | 2018-02-20 15:21 | CONS ---
CONSULTATION Delbert Bosch is a 57-year-old gentleman, history of type 2 diabetes, hypertension, hyperlipidemia, who uses cocaine, yesterday he snorted some cocaine, drank alcohol generously and came into the hospital complaining of having some sharp pains in the chest. As soon as I saw the patient, he said he would like to go home and he has no issues or symptoms at this time. Patient is not a very good historian, but he does admit to having cocaine on a regular basis and he felt some sharp pains in the chest after he took the cocaine and then he decided to come into the hospital. He has no chest pain at this time. He appears to be quite comfortable and the quality of pain also appears to be somewhat atypical. Apparently in his left arm, he has had some injury in the past. The reason and rationale for the injury is unclear. He had some incision. there is infection and healing of it. The pain actually started in the left hand and came up to the shoulder and maybe to the anterior chest. The quality of pain is atypical, sharp in nature. Then the pain in his left arm was more of a dull ache. Appears very musculoskeletal. He is comfortable. His troponins do not suggest any myocardial injury. They are all in a flat range of 0.03 and 0.04. He is resting comfortably without symptoms. All his other laboratory data are unremarkable. MEDICATIONS: At home include metformin, Flomax, simvastatin, metoprolol succinate, lisinopril, gabapentin, and inhalers. PAST MEDICAL HISTORY: Remarkable for type 2 diabetes, hypertension, hyperlipidemia, sleep apnea but I am not sure he wears a CPAP regularly. Also has COPD, hepatitis C, and previous neck surgery, details of which are unclear. On examination, his blood pressure is 130/70, pulse rate is 70 per minute. regular. HEENT: Unremarkable. Fundus was not examined by me. Neck is supple. There is no JVD. I do not hear a carotid bruit. Heart exam reveals S1, S2 heard normally. There is a short systolic murmur at the base. Lungs are clear. Abdomen is soft, nontender. Lower extremities reveal normal pulses. No edema. Central nervous system is normal. EKG revealed sinus mechanism, no acute changes. IMPRESSION: 1. History of drug abuse with recent cocaine snorting. 2. Type 2 diabetes mellitus. 3. Hypertension. 4. Hyperlipidemia. 5. Elevated troponin, not suggestive of myocardial injury with atypical chest pain. RECOMMENDATION: I am recommending the patient can be discharged from a cardiac standpoint, no intervention is necessary. He should have a stress test as an outpatient. I have advised counseled regarding need to refrain from alcohol, cocaine and tobacco. Advised to follow up with his primary care physician. I will see the patient as needed. Thank you very much for the consult. MELI / SERVANDO: [id number] /
--- NOTE | 2018-02-20 16:09 | P.DS ---
Providers Date of admission: 02/19/18 10:42 Expected date of discharge: 02/20/18 Attending physician: Curt Law Consults: 02/19/18 10:43 Consult Physician Routine Consulting Provider: Umm Carr Consult Reason/Comments: Chest pain, likely secondary to cocaine, elevated troponin Do you want consulting provider notified?: Yes Primary care physician: [facility] Course: Patient left AMA Patient Condition at Discharge: Stable Plan - Discharge Summary Discharge Rx Participant: No New Discharge Prescriptions: No Action Simvastatin [Zocor] 40 mg PO DAILY DULoxetine HCL [Cymbalta] 60 mg PO DAILY Lisinopril [Zestril] 10 mg PO DAILY Metoprolol Succinate (ER) [Toprol Xl] 25 mg PO DAILY Gabapentin [Neurontin] 800 mg PO TID metFORMIN HCL [Glucophage] 500 mg PO DAILY Tamsulosin [Flomax] 0.4 mg PO DAILY Albuterol Inhaler [Ventolin Hfa Inhaler] 1 - 2 puff INHALATION RT-Q6H PRN PRN Reason: Dyspnea Omeprazole 20 mg PO DAILY Discharge Medication List DULoxetine HCL [Cymbalta] 60 mg PO DAILY 10/04/15 [History] Simvastatin [Zocor] 40 mg PO DAILY 10/04/15 [History] Gabapentin [Neurontin] 800 mg PO TID 07/11/17 [History] Lisinopril [Zestril] 10 mg PO DAILY 07/11/17 [History] Metoprolol Succinate (ER) [Toprol Xl] 25 mg PO DAILY 07/11/17 [History] Albuterol Inhaler [Ventolin Hfa Inhaler] 1 - 2 puff INHALATION RT-Q6H PRN [History] Omeprazole 20 mg PO DAILY 12/16/17 [History] Tamsulosin [Flomax] 0.4 mg PO DAILY 12/16/17 [History] metFORMIN HCL [Glucophage] 500 mg PO DAILY 12/16/17 [History] Follow up Appointment(s)/Referral(s): Nataliya Ruano FNPBC [REFERRING] - 02/24/18 8:30 am (Friday) Patient Instructions/Handouts: Chest Pain (DC) Activity/Diet/Wound Care/Special Instructions: Patient left AMA Discharge Disposition: Left Against Medical Advice
== END 2018-02-20 09:30 | disposition left against medical advice (07) ==
LOC: EC 08:54 → 6SEL 10:42
PROVIDERS: ADMIT Hospitalist; ATTEND Hospitalist
DX: R07.89 Other chest pain (principal); M79.602 Pain in left arm; F17.200 Nicotine dependence, unspecified, uncomplicated; Z79.899 Other long term (current) drug therapy; Z79.84 Long term (current) use of oral hypoglycemic drugs; J44.9 Chronic obstructive pulmonary disease, unspecified; E78.5 Hyperlipidemia, unspecified; I10 Essential (primary) hypertension; G47.30 Sleep apnea, unspecified; F32.9 Major depressive disorder, single episode, unspecified; M25.551 Pain in right hip; N50.811 Right testicular pain; F14.10 Cocaine abuse, uncomplicated; R77.8 Other specified abnormalities of plasma proteins; M50.30 Other cervical disc degeneration, unspecified cervical region; E11.40 Type 2 diabetes mellitus with diabetic neuropathy, unspecified; M47.9 Spondylosis, unspecified; N40.0 Benign prostatic hyperplasia without lower urinary tract symptoms; T79.A12A Traumatic compartment syndrome of left upper extremity, initial encounter; F41.9 Anxiety disorder, unspecified; Z86.19 Personal history of other infectious and parasitic diseases; Z81.1 Family history of alcohol abuse and dependence; Z82.49 Family history of ischemic heart disease and other diseases of the circulatory system; Z81.8 Family history of other mental and behavioral disorders
CPT/HCPCS: 99285; 96365 ×2; 96375 ×2; 36415; 94760; 93005; 83880; 80053; 82550; 82553; 83735; 84484; 85025; 85610; 85730; 80306; 71046; G0378 ×2; J1885; J3475

== ENCOUNTER → 2018-09-07 | Outpatient (CLI) | payer OTHER ==
[2018-09-07 10:31] LABS: Basophils % (A) 1 %; Eosinophils # (A) 0.1 k/uL (0-0.7); Eosinophils % (A) 2 %; HCT 50.5 % (39.0-53.0); HGB 15.7 gm/dL (13.0-17.5); Lymphocytes # (A) 1.3 k/uL (1.0-4.8); Lymphocytes % (A) 31 %; MCH 30.8 pg (25.0-35.0); MCV 99.1 fL (80.0-100.0); Mean Platelet Volume 7.1; Monocytes # (A) 0.3 k/uL (0-1.0); Monocytes % (A) 7 %; Neutrophils # (A) 2.4 k/uL (1.3-7.7); Neutrophils % (A) 57 %; Platelet Count 189 k/uL (150-450); RBC 5.09 m/uL (4.30-5.90); RDW 14.2 % (11.5-15.5); WBC 4.2 k/uL (3.8-10.6)
[2018-09-07 10:46] LABS: Prothrombin Time 10.5 sec (9.0-12.0)
[2018-09-07 16:37] LABS: Albumin/Globulin Ratio 1.9 (1.20-2.10); Anion Gap 3.6 mmol/L (4.00-12.00); Carbon Dioxide 25.4 mmol/L (21.6-31.8); Globulin 2.1 g/dL (2.1-3.7); Potassium 4.7 mmol/L (3.5-5.5); Total Bilirubin 0.4 mg/dL (0.2-1.2); Total Protein 6.1 g/dL (6.2-8.2)
[2018-09-08 14:48] LABS: Hepatits C Virus RNA DETECTED (Not detected); LOG HCV IU/mL 6.04 (<1.08)
== END ==
LOC: LABWHC1 09:35
PROVIDERS: ATTEND Internal Medicine Gastroenterology
DX: B18.2 Chronic viral hepatitis C (principal)
CPT/HCPCS: 36415; 80053; 82105; 85025; 85610; 87522

== ENCOUNTER → 2018-09-11 | Outpatient (CLI) | payer OTHER | END | disposition home or self-care (01) | LOC: LABWHC1 09:25 | PROVIDERS: ATTEND Internal Medicine Gastroenterology | DX: B18.2 Chronic viral hepatitis C (principal) | CPT/HCPCS: 36415 ==

== ENCOUNTER → 2019-01-05 | Outpatient (CLI) | payer OTHER ==
[2019-01-05 11:51] LABS: Basophils % (A) 0 %; Eosinophils # (A) 0.1 k/uL (0-0.7); Eosinophils % (A) 2 %; HCT 49.7 % (39.0-53.0); HGB 15.8 gm/dL (13.0-17.5); Lymphocytes # (A) 1.7 k/uL (1.0-4.8); Lymphocytes % (A) 31 %; MCH 31.8 pg (25.0-35.0); MCHC 31.8 g/dL (31.0-37.0); MCV 99.9 fL (80.0-100.0); Mean Platelet Volume 6.7; Monocytes # (A) 0.4 k/uL (0-1.0); Monocytes % (A) 8 %; Neutrophils % (A) 56 %; Platelet Count 233 k/uL (150-450); RBC 4.97 m/uL (4.30-5.90); RDW 13.8 % (11.5-15.5); WBC 5.4 k/uL (3.8-10.6)
[2019-01-05 16:03] LABS: ALT 15 U/L (10-49); AST 23 U/L (14-35); Albumin/Globulin Ratio 1.95 (1.60-3.17); Alkaline Phosphatase 75 U/L (41-126); Bilirubin, Conjugated <0.20 mg/dL (0.20-0.40); Globulin 2.1 g/dL (1.6-3.3); Total Bilirubin 0.3 mg/dL (0.2-1.2); Total Protein 6.2 g/dL (6.2-8.2)
[2019-01-06 15:28] LABS: Hepatits C Virus RNA DETECTED (Not detected); Hepatits C Virus RNA, Quant <12 IU/mL (<12); LOG HCV IU/mL <1.08 (<1.08)
== END ==
LOC: LABWHC1 10:41
PROVIDERS: ATTEND Internal Medicine Gastroenterology
DX: B18.2 Chronic viral hepatitis C (principal)
CPT/HCPCS: 36415; 80076; 85025; 87522

== ENCOUNTER 2019-05-06 22:09 | Emergency (ER) | payer OTHER ==
[2019-05-06 22:22] VITALS: RESP 18
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
--- NOTE | 2019-05-06 23:19 | CT ---
EXAM: CT Head Without Intravenous Contrast CLINICAL HISTORY: ITS.REASON CT Reason: Pain TECHNIQUE: Axial computed tomography images of the head/brain without intravenous contrast. CTDI is 45.2 mGy and DLP is 1424.6 mGy-cm. This CT exam was performed using one or more of the following dose reduction techniques: automated exposure control, adjustment of the mA and/or kV according to patient size, and/or use of iterative reconstruction technique. COMPARISON: 05/04/17. FINDINGS: Brain: No intracranial hemorrhage or mass effect. Ventricles: Unremarkable. No ventriculomegaly. Bones/joints: Unremarkable. No acute fracture. Soft tissues: Rightward forehead contusion. Sinuses: Unremarkable as visualized. No acute sinusitis. Mastoid air cells: Unremarkable as visualized. No mastoid effusion. IMPRESSION: No acute brain or skull injury.
--- NOTE | 2019-05-06 23:21 | CT ---
EXAM: CT Maxillofacial Without Intravenous Contrast CLINICAL HISTORY: ITS.REASON CT Reason: Pain TECHNIQUE: Axial computed tomography images of the face without intravenous contrast. CTDI is 45.2 mGy and DLP is 1424.6 mGy-cm. This CT exam was performed using one or more of the following dose reduction techniques: automated exposure control, adjustment of the mA and/or kV according to patient size, and/or use of iterative reconstruction technique. COMPARISON: No relevant prior studies available. FINDINGS: Bones/joints: Fracture of the leftward nasal bridge. Degeneration of the upper cervical spine. Soft tissues: Unremarkable. Orbits: No retrobulbar hematoma. Sinuses: Mild maxillary sinus mucosal thickening. IMPRESSION: Nasal bridge fracture.
[2019-05-07 00:01] VITALS: BP 130/82; PULSE 108; TEMP 98.6
== END 2019-05-07 00:01 | disposition home or self-care (01) ==
LOC: EC 22:09
DX: S02.2XXA Fracture of nasal bones, initial encounter for closed fracture (principal); H57.89 Other specified disorders of eye and adnexa; E11.40 Type 2 diabetes mellitus with diabetic neuropathy, unspecified; J44.9 Chronic obstructive pulmonary disease, unspecified; I10 Essential (primary) hypertension; G47.33 Obstructive sleep apnea (adult) (pediatric); N40.0 Benign prostatic hyperplasia without lower urinary tract symptoms; H40.9 Unspecified glaucoma; F32.9 Major depressive disorder, single episode, unspecified; F41.9 Anxiety disorder, unspecified; F17.200 Nicotine dependence, unspecified, uncomplicated; Z79.899 Other long term (current) drug therapy; Z99.89 Dependence on other enabling machines and devices; Z86.19 Personal history of other infectious and parasitic diseases; Z98.890 Other specified postprocedural states; Y04.0XXA Assault by unarmed brawl or fight, initial encounter
CPT/HCPCS: 70450; 70486; 99284